=== PATIENT | male | born 1960 | race Asian ===

== ENCOUNTER 2018-11-08 10:08 | Day surgery (SDC) | payer OTHER ==
[2018-11-08] MEDS ORDERED: FENTAnyl 50 MCG/ML VIAL (12:04)
[2018-11-08] MEDS ORDERED: MIDAZOLAM 1 MG/ML 2 ML INJ ×3 (12:04)
== END 2018-11-08 12:06 | disposition home or self-care (01) ==
LOC: GIL 10:08
DX: Z12.11 Encounter for screening for malignant neoplasm of colon (principal); K64.8 Other hemorrhoids; I10 Essential (primary) hypertension
CPT/HCPCS: 45378